=== PATIENT | male | born 1960 | race Two or more races ===

== ENCOUNTER 2020-12-04 08:00 | Emergency (ER) | payer OTHER ==
[~2020-12-04] VITALS: Ht 170.2 cm; Wt 76.7 kg
[~2020-12-04 08:00] MED LIST: ECOTRIN81 MG; GLIPIZIDE XL5 MG; NEURONTIN300 MG; TOPROL XL50 M1; ZYRTEC10 MG PO
[2020-12-04] MEDS ORDERED: FLAGYL500MG PO (14:10)
[2020-12-04] MEDS ORDERED: INTESTINEX680 M1 PO (14:10)
[2020-12-04] MEDS ORDERED: PEPCID AC20 MG PO (14:10)
[2020-12-04] MEDS ORDERED: CIPRO500 MG PO (14:10)
== END 2020-12-04 17:08 | disposition home or self-care (01) ==
LOC: ER 08:00
DX: K57.90 Diverticulosis of intestine, part unspecified, without perforation or abscess without bleeding (principal); R10.32 Left lower quadrant pain

== ENCOUNTER 2020-12-19 09:04 | Emergency (ER) | payer OTHER ==
[~2020-12-19] VITALS: Ht 170.2 cm; Wt 74.8 kg
[~2020-12-19 09:04] MED LIST changes: +CIPRO500 MG PO; +FLAGYL500MG PO; +INTESTINEX680 M1 PO; +PEPCID AC20 MG PO
== END 2020-12-19 12:20 | disposition home or self-care (01) ==
LOC: ER 09:04
DX: K29.70 Gastritis, unspecified, without bleeding (principal)